=== PATIENT | male | born 1975 | race Caucasian/White ===

== ENCOUNTER 2017-01-26 13:13 | Emergency (ER) | payer MEDICARE | END 2017-01-26 18:03 | disposition home or self-care (01) | LOC: ER 13:13 | DX: C20 Malignant neoplasm of rectum (principal); F17.210 Nicotine dependence, cigarettes, uncomplicated; F32.9 Major depressive disorder, single episode, unspecified; F41.9 Anxiety disorder, unspecified; Z88.2 Allergy status to sulfonamides | CPT/HCPCS: 36415; 96361; 96365; 96375; J1885; Q9963; Q9967 ==